=== PATIENT | female | born 1975 | race Caucasian/White ===

== ENCOUNTER → 2016-03-12 | Outpatient (CLI) | payer BC ==
[2016-03-12 09:15] VITALS: BP 120/73; PULSE 94; RESP 16; TEMP 98.3
[2016-03-12 09:44] VITALS: BMI 48.0
--- NOTE | 2016-03-12 10:04 | P.PN ---
Subjective Morbid obesity status post sleeve gastrectomy 40 years old female with morbid obesity BMI 53.6, height 5 feet 0.91nches presents for bariatric surgery follow up. Her comorbid conditions include benign essential hypertension, uncontrolled type 2 diabetes mellitus with prior diabetic ketoacidosis, hypothyroidism, asthma , liver cirrhosis and fibromyalgia. She is currently off insulin and takes metformin Preoperative visit #1, weight 128.3 KG, BMI 53.6 Preoperative visit #2, weight 128.3 KG, BMI 53.6 Preoperative visit #3, weight 127.23 KG, BMI 53 Surgery 01/30/16, weight 124.82 KG , BMI 52 Postoperative visit #1, weight 116.37KG, BMI 48.5 Postoperative visit #1, weight 115.34KG, BMI 48 Liver biopsy results discussed with the patient. She has cirrhosis without ascites or portal hypertension Review of Systems Constitutional: Denies fever, weight loss or loss of appetite HEENT: No difficulty in vision or hearing. Denies dysphagia. Cardiovascular: Denies chest pain, palpitations, dizziness, shortness of breath. Respiratory: Known sleep apnea but has not used CPAP machine due to ill fitting mask. Long-standing asthma well controlled with rescue inhalers. Gastrointestinal: No recent change in bowel habits, no abdominal pain, no nausea or vomiting. Occasional reflux symptoms Integumentary: No blood clots or rash Genitourinary: No urinary incontinence, hematuria or dysuria Neurologic: No seizures, denies weakness in upper or lower extremities. Chronic headaches and migraine Musculoskeletal: Knee Pain and back pain Psychiatry: Known history of depression, no suicidal ideation, no anxiety or psychosis Past Medical History Past Medical History: Asthma, Diabetes Mellitus, Fibromyalgia, GERD/Reflux, Hypertension, Pneumonia, Sleep Apnea/CPAP/BIPAP, Thyroid Disorder Additional Past Medical History / Comment(s): IP ADMISSION FOR PNEUMONIA. CPAP IS ORDERED BUT PATIENT IS NOT USING. Low back & knee pain. Migraines. Fibromyalgia History of Any Multi-Drug Resistant Organisms: None Reported Past Surgical History: Cholecystectomy Additional Past Surgical History / Comment(s): Carpal tunnel on left hand Past Anesthesia/Blood Transfusion Reactions: No Reported Reaction Additional Past Anesthesia/Blood Transfusion Reaction / Comment(s): "TAKES LONGER TO WAKE UP" Past Psychological History: Depression Additional Psychological History / Comment(s): takes cymbalta Smoking Status: Never smoker Past Alcohol Use History: None Reported Past Drug Use History: None Reported - Past Family History Mother Family Medical History: AFIB Father Family Medical History: Diabetes Mellitus, Hypertension, Pulmonary Embolus, Sleep Apnea/CPAP/BIPAP Additional Family Medical History / Comment(s): arthritis Objective - Vital Signs Vital signs: Vital Signs Temp 98.3 F 03/12/16 09:08 Pulse 94 03/12/16 09:08 Resp 16 03/12/16 09:08 BP 120/73 03/12/16 09:08 Pulse Ox Intake & Output 03/11/16 03/12/16 03/12/16 18:59 06:59 18:59 Weight 115.349 kg - Exam Gen.: Patient is alert and oriented to time place and person and cooperative with exam. No distress. Chest: Bilateral breath sounds present. Abdomen: Incisions clean dry and intact. No surgical site infection Integumentary: No rash - Labs CBC & Chem 7: 03/12/16 10:10 03/12/16 10:10 Assessment and Plan (1) Fibromyalgia Status: Acute (2) Hypertension Status: Acute (3) Hypothyroidism Status: Acute (4) Morbid obesity with BMI of 45.0-49.9, adult Status: Acute (5) Type 2 diabetes mellitus Status: Acute Plan: 1. Continue diet as per post bariatric surgery protocol 2. Start multivitamin daily. Increase physical activity . 3. Liver cirrhosis on operative finding and biopsy. Recommend GI consultation / Dr. Robbins for further workup 4. Follow-up in 3 months
[2016-03-12 10:49] LABS: CH 27.1; CHCM 31.8; HCT 40.4 % (34.0-46.0); HDW 2.51; HGB 12.8 gm/dL (11.4-16.0); MCH 27.2 pg (25.0-35.0); MCHC 31.8 g/dL (31.0-37.0); MCV 85.5 fL (80.0-100.0); Mean Platelet Volume 7.6; RBC 4.73 m/uL (3.80-5.40); RDW 14.8 % (11.5-15.5); WBC 5.3 k/uL (3.8-10.6)
[2016-03-12 11:26] LABS: ALT 43 U/L (9-52); AST 36 U/L (14-36); Alkaline Phosphatase 55 U/L (38-126); Anion Gap 13 mmol/L; Blood Urea Nitrogen 17 mg/dL (7-17); Calcium 9.9 mg/dL (8.4-10.2); Carbon Dioxide 25 mmol/L (22-30); Chloride 111 mmol/L (98-107); Glucose 116 mg/dL (74-99); Non-African American GFR(MDRD) >60 (>60 ml/min/1.73 sqM); Potassium 4.4 mmol/L (3.5-5.1); Sodium 149 mmol/L (137-145); Total Bilirubin 0.8 mg/dL (0.2-1.3); Total Protein 7.5 g/dL (6.3-8.2)
[2016-03-12 11:34] LABS: Prealbumin 25 mg/dL (18-36)
== END | disposition home or self-care (01) ==
LOC: BARWHC3 09:05
PROVIDERS: ATTEND Surgery
DX: Z48.815 Encounter for surgical aftercare following surgery on the digestive system (principal); Z71.3 Dietary counseling and surveillance; E66.01 Morbid (severe) obesity due to excess calories; Z68.42 Body mass index [BMI] 45.0-49.9, adult; M79.7 Fibromyalgia; I10 Essential (primary) hypertension; E03.9 Hypothyroidism, unspecified; E11.9 Type 2 diabetes mellitus without complications; K74.60 Unspecified cirrhosis of liver; G47.30 Sleep apnea, unspecified; Z99.89 Dependence on other enabling machines and devices; J45.909 Unspecified asthma, uncomplicated; Z87.01 Personal history of pneumonia (recurrent)
CPT/HCPCS: 80053; 82306; 84134; 84425; 84443; 84590; 85027; 99211

== ENCOUNTER → 2017-11-06 | Outpatient (CLI) | payer BC ==
[2017-11-06 09:03] VITALS: BP 140/97; PULSE 70; RESP 16
--- NOTE | 2017-11-06 09:33 | P.PAINCN ---
History of Present Illness - Reason for Consult Consult date: 11/06/17 - History of Present Illness This is the initial consultation visit for this 16 years old female with a chronic history of severe shoulder pain, upper back pain and low back pain and hip pain, started more than 2 years ago, she was diagnosed with fibromyalgia, and she is currently on combination medication Motrin 800 mg 3 times a day and Zanaflex 4 mg daily at bedtime, Lyrica 200 mg daily, Robaxin 100 mg 3 times a day when necessary, she denies any side effect of the medication she denies any excessive drowsiness or sleepiness, and she reported that the current medication helping to some degree but she continued to have severe shoulder pain , she is able to mobilize her shoulders bilaterally but the intensity of the pain increases with any shoulder movement, she denies any fever or night sweats she denies any change in the bowel movement or urination, she denies any motor or sensory deficit Past Medical History Past Medical History: Asthma, Diabetes Mellitus, Fibromyalgia, GERD/Reflux, Hypertension, Pneumonia, Respiratory Disorder, Sleep Apnea/CPAP/BIPAP, Thyroid Disorder Additional Past Medical History / Comment(s): PNEUMONIA. CPAP IS ORDERED BUT PATIENT IS NOT USING. Low back & knee pain. Migraines. Fibromyalgia History of Any Multi-Drug Resistant Organisms: None Reported Past Surgical History: Cholecystectomy Additional Past Surgical History / Comment(s): Carpal tunnel on left hand, 01-29 GASTRIC SLEEVE Past Anesthesia/Blood Transfusion Reactions: No Reported Reaction Additional Past Anesthesia/Blood Transfusion Reaction / Comm: "TAKES LONGER TO WAKE UP", CLAUSTERPHOBIA. Smoking Status: Never smoker - Past Family History Mother Family Medical History: AFIB Father Family Medical History: Diabetes Mellitus, Hypertension, Pulmonary Embolus, Sleep Apnea/CPAP/BIPAP Additional Family Medical History / Comment(s): arthritis Medications and Allergies Home Medications Medication Instructions Recorded Confirmed Type Albuterol Sulfate [Ventolin HFA] 2 puff INHALATION RT-Q6H PRN 02/13/14 11/06/17 History Methocarbamol [Robaxin] 1,000 mg PO TID PRN 07/18/15 11/06/17 History Pregabalin [Lyrica] 200 mg PO DAILY 07/18/15 11/06/17 History Levothyroxine Sodium [Synthroid] 100 mcg PO DAILY 01/30/16 11/06/17 History medroxyPROGESTERone [Depo-Provera] 150 mg IM Q84D 01/30/16 11/06/17 History Ibuprofen 800 mg PO TID PRN 11/06/17 11/06/17 History Sertraline HCl [Zoloft] 25 mg PO DAILY 11/06/17 11/06/17 History tiZANidine HCL [Zanaflex] 4 mg PO HS 11/06/17 11/06/17 History Allergies Allergy/AdvReac Type Severity Reaction Status Date / Time rizatriptan benzoate Allergy Severe ASTHMA Verified 11/06/17 08:36 [From Maxalt] EXACERBATION sumatriptan [From Imitrex] Allergy Severe ASTHMA Verified 11/06/17 08:36 EXACERABATION,PANICK ATACK sumatriptan succinate Allergy Severe ASTHMA Verified 11/06/17 08:36 [From Imitrex] EXACERBATION,PANIC ATTACKS zolmitriptan [From Zomig] Allergy Severe ASTHMA Verified 11/06/17 08:36 EXACERBATION Physical Exam Vitals: Vital Signs Pulse Resp BP Pulse Ox 11/06/17 08:57 70 16 140/97 97 Intake and Output 11/05/17 11/06/17 11/06/17 22:59 06:59 14:59 Other: Weight 117.934 kg Social history : not smoker , NO ETOH , NO Illegal drugs use . Review of Systems : 1- Constitutional : no chills , no fever , no night sweats , 2- Ears : no ear discharge , no change in hearing 3-Nose, Mouth ,Throat ; no bleeding gums, no sore throat , no epistaxis , 4-Cardiovascular : Denies chest pain, , no orthopnea , no palpitation 5-Respiratory : Denies cough , no dyspnea , no hemoptysis 6-Gastrointestinal :, no change in bowel habits , no coffee- ground emesis , morbidly obese. 7-Genitourinary : No hematuria , no discharge , no incontinence, 8-Musculoskeletal : No gait dysfunction , report upper low back pain , bilateral shoulder pain , reports right hip pain 9- Neurological : no ataxia , no tremor , no sezure , 10-Psychatric , no suicidal ideation no hallucination 11- Endocrine : no cold intolerence , no polyuria , no polydypsia , 12-Hematologic : no easy bleeding , no easy brusing , 13-Allergic / immunology : no angioedema , no wheezing ,no allergic rhinitis 14-Integumentary : no brttle nails , no change hair / nails , no foot/leg ulcers . Physical Examinations : 1-Constitutional : Cooperative , not in acute distress . 2-HEENT : nech ; supple , no Lymphadenopathy , no Thyromegaly , :eyes , no icterus, no photophobia . ENT : , normal oropharynx , no Thrush 3- Respiratory : Chest clear to auscultations Bilaterally , no wheezing . 4- Cardiovascular : regular rate and rhythem , S1 , S2 , no S3 , no S4. 5- Gastrointestinal: abdomen soft no tenderness , no organomegally . 6- Genitourinary : Defferred . 7-Integumentary : No cellulitis , no ulcers , normal skin turgor , no cyanotic . 8- neurologic : Cranial nerve II to XII intact , no focal neurological deffecit 9-psychatric : alert , oriented X 3 , appropriate affect , intact judgment and insight . 10-Lymphatic : no Lymphadenopathy. 11- musculoskeltal: normal gait Shoulder exam= tenderness over the deltoid muscles , supraspinatus muscle and infraspinatus muscles Shoulder joint range of motion, and pain with external rotation , and pain with abduction of both shoulders Cervical Spine motor stregnth in the deltoid and biceps, normal right side , normal Left side Lumber spine moter stegnth lower extremities ,thigh and legs 5/5 Right side , 5/5 Left side Assessment and Plan Plan: Assessment and plan=1-bilateral shoulder pain mostly secondary to muscular in nature. Examination supplanted the pain is not from the joint itself , it is from the muscles around the joint , patient could benefit from trigger point injection in the shoulder area(infraspinatus/ supraspinatus and deltoid ). 2-fibromyalgia= patient currently on appropriate medication regimen, I discussed with the patient the option of increasing the Lyrica 200 From once a day 100 mg twice a day, patient reported that her insurance did not approve it Time with Patient: Greater than 30 PQRS Measure Charge Sheet Measure #130: Documentation of Current Meds in Medical Chart: Patient's medications documented in chart Measure #226: Tobacco Use: Screen & Cessation Intervention: Pt not a tobacco user Measure #111: Pneumonia Vaccination: Pneumococcal vaccine NOT administered or previously given Measure #47: Advance Care Plan: Advance care planning discussed & documented, pt chose/unable to give Measure #412: Opioid Treatment Agreement: No documentation of signed opioid treatment agreement Measure #408: Opioid Therapy Follow-up Evaluation: Patient had NO f/u eval minimum every 3 months during opioid therapy Measure #317: Preventitive Care & Scrn High Bld Press & F/U: Pre-hypertensive or hypertensive BP documented, pt will f/u with PCP Measure #128: Body Mass Index (BMI) Screening & Follow-up: BMI documented ABOVE normal parameters - f/u documented Measure #131: Pain Assessment & Follow-up: Pain positive & plan documented, Follow-up scheduled Measure #431: Unhealthy Alcohol Use Preventative Care & Scrn: Patient not identified as an unhealthy alcohol user PQRS Narrative: Smoking Status Never smoker Do You Want the Pneumonia No Vaccine AT THIS TIME? Blood Pressure 140/97 Pain Intensity [Bilateral 3 Shoulder] Scale Used Numeric (1 - 10) Hx Alcohol Use (MH) No Home Medications: Ambulatory Orders Albuterol Sulfate [Ventolin HFA] 2 puff INHALATION RT-Q6H PRN 02/13/14 Methocarbamol [Robaxin] 1,000 mg PO TID PRN 07/18/15 Pregabalin [Lyrica] 200 mg PO DAILY 07/18/15 Levothyroxine Sodium [Synthroid] 100 mcg PO DAILY 01/30/16 medroxyPROGESTERone [Depo-Provera] 150 mg IM Q84D 01/30/16 Ibuprofen 800 mg PO TID PRN 11/06/17 Sertraline HCl [Zoloft] 25 mg PO DAILY 11/06/17 tiZANidine HCL [Zanaflex] 4 mg PO HS 11/06/17
== END | disposition home or self-care (01) ==
LOC: PNWHC3 08:32
PROVIDERS: ATTEND Specialist
DX: G89.29 Other chronic pain (principal); M25.512 Pain in left shoulder; M25.511 Pain in right shoulder; M54.5 Low back pain; M79.7 Fibromyalgia; J45.909 Unspecified asthma, uncomplicated; E07.9 Disorder of thyroid, unspecified; Z79.1 Long term (current) use of non-steroidal anti-inflammatories (NSAID); Z79.899 Other long term (current) drug therapy; Z79.3 Long term (current) use of hormonal contraceptives; Z88.8 Allergy status to other drugs, medicaments and biological substances; Z90.49 Acquired absence of other specified parts of digestive tract
CPT/HCPCS: 99211

== ENCOUNTER 2017-11-23 06:55 | Day surgery (SDC) | payer BC ==
[2017-11-17 10:06] VITALS: BMI 47.2
[~2017-11-23 06:55] MED LIST: LACTATED RINGERS 1,000 ML IV SCH
[2017-11-23 07:26] VITALS: RESP 18; TEMP 98.6
--- NOTE | 2017-11-23 08:16 | P.PCN ---
Date of Procedure: 11/23/17 Anesthesia: local Pathology: none sent Condition: stable Disposition: PACU Description of Procedure: The patient was seen in the preop holding area consent was obtained then she was brought into the procedure room and placed in prone position. The trigger points were marked at the skin level and skin and then was prepped with DuraPrep and draped in a sterile manner. I then used 25-gauge 1-1/2 inch needle to go through the skin and into the trapezius and rhomboid muscles bilaterally and the left deltoid muscle. A solution of 40 mg of Kenalog +8 MLS of ropivacaine 0.5% was prepared and 1 mL of the solution was injected at each target point was a total of 9 points were injected. Patient tolerated procedure well.
[2017-11-23 08:26] VITALS: BP 130/89; PULSE 70
== END 2017-11-23 08:42 | disposition home or self-care (01) ==
LOC: ORPAIN 06:55
PROVIDERS: ATTEND Anesthesiology
DX: G89.29 Other chronic pain (principal); M79.18 Myalgia, other site; M79.7 Fibromyalgia; Z79.1 Long term (current) use of non-steroidal anti-inflammatories (NSAID); Z79.899 Other long term (current) drug therapy; J45.909 Unspecified asthma, uncomplicated; E11.9 Type 2 diabetes mellitus without complications; K21.9 Gastro-esophageal reflux disease without esophagitis; I10 Essential (primary) hypertension; G47.30 Sleep apnea, unspecified; E07.9 Disorder of thyroid, unspecified; Z79.890 Hormone replacement therapy; Z88.8 Allergy status to other drugs, medicaments and biological substances
CPT/HCPCS: 81025; 20553; J3301

== ENCOUNTER → 2017-12-14 | Outpatient (CLI) | payer BC ==
--- NOTE | 2017-12-14 12:37 | P.PAINPG ---
Subjective Progress Note Date: 12/14/17 This is a follow-up visit for this 42 years old female, with a history of severe neck and left shoulder, diagnosed with fibromyalgia, and myofascial pain syndrome with done trigger point injection, shoulders and cervical area, she continued to have severe neck pain and shoulder pain, she is currently on Robaxin , Zanaflex daily at bedtime, Motrin 800 mg 3 times a day, Lyrica 200 mg daily at bedtime, she denies any side effect of the medication she denies any excessive drowsiness and sleepiness, and she reports the current medication is not helping enough to control her pain, she denies any motor or sensory deficit she denies any fever or night sweats, and no change in bowel movement or urination Physical Examinations : 1-Constitutional : Cooperative , not in acute distress . 2-HEENT : nech ; supple , no Lymphadenopathy , no Thyromegaly , :eyes , no icterus, no photophobia . ENT : , normal oropharynx , no Thrush 3- Respiratory : Chest clear to auscultations Bilaterally , no wheezing . 4- Cardiovascular : regular rate and rhythem , S1 , S2 , no S3 , no S4. 5- Gastrointestinal: abdomen soft no tenderness , no organomegally . 6- Genitourinary : Defferred . 7-Integumentary : No cellulitis , no ulcers , normal skin turgor , no cyanotic . 8- neurologic : Cranial nerve II to XII intact , no focal neurological deffecit 9-psychatric : alert , oriented X 3 , appropriate affect , intact judgment and insight . 10-Lymphatic : no Lymphadenopathy. 11- musculoskeltal: normal gait Shoulder exam= tenderness over the deltoid muscles , supraspinatus muscle and infraspinatus muscles Shoulder joint range full range of motion, minimal pain with external rotation, pain with abduction of both shoulders Cervical Spine motor stregnth in the deltoid and biceps, normal right side , normal Left side Lumber spine moter stegnth lower extremities ,thigh and legs 5/5 Right side , 5/5 Left side Assessment and Plan Plan: Assessment and plan=1-bilateral shoulder pain mostly secondary to muscular in nature. Examination supplanted the pain is not from the joint itself , it is from the muscles around the joint , patient could benefit from trigger point injection in the shoulder area(infraspinatus/ supraspinatus and deltoid ). 2-fibromyalgia= patient currently on appropriate medication regimen, I discussed with the patient the option of increasing the Lyrica 200 From once a day 100 mg twice a day, patient reported that her insurance did not approve it Patient could benefit from physical therapy/ massage therapy , prescription given. Patient could benefit from repeat trigger point injection, prescription refill for Lyrica 200 mg daily at bedtime dispense 30 with 5 refills given Objective - Vital Signs Vital signs: Vital Signs Temp Pulse 87 12/14/17 12:11 Resp 16 12/14/17 12:11 BP 132/83 12/14/17 12:11 Pulse Ox 97 12/14/17 12:11 Intake & Output 12/13/17 12/14/17 12/14/17 18:59 06:59 18:59 Weight 117.934 kg PQRS Measure Charge Sheet Measure #130: Documentation of Current Meds in Medical Chart: Patient's medications documented in chart Measure #226: Tobacco Use: Screen & Cessation Intervention: Pt not a tobacco user Measure #111: Pneumonia Vaccination: Pneumococcal vaccine NOT administered or previously given Measure #47: Advance Care Plan: Advance care planning discussed & documented, pt chose/unable to give Measure #412: Opioid Treatment Agreement: No documentation of signed opioid treatment agreement Measure #408: Opioid Therapy Follow-up Evaluation: Patient had NO f/u eval minimum every 3 months during opioid therapy Measure #317: Preventitive Care & Scrn High Bld Press & F/U: Normal blood pressure, f/u not required Measure #128: Body Mass Index (BMI) Screening & Follow-up: BMI documented ABOVE normal parameters - f/u documented Measure #131: Pain Assessment & Follow-up: Pain positive & plan documented, Follow-up scheduled Measure #431: Unhealthy Alcohol Use Preventative Care & Scrn: Patient not identified as an unhealthy alcohol user PQRS Narrative: Smoking Status Never smoker Do You Want the Pneumonia No Vaccine AT THIS TIME? Blood Pressure 132/83 Pain Intensity [Posterior Head 6 ] Scale Used Numeric (1 - 10) Hx Alcohol Use (MH) No Home Medications: Ambulatory Orders Albuterol Sulfate [Ventolin HFA] 2 puff INHALATION RT-Q6H PRN 02/13/14 Methocarbamol [Robaxin] 1,000 mg PO TID PRN 06/01/16 Pregabalin [Lyrica] 200 mg PO HS 07/18/15 medroxyPROGESTERone [Depo-Provera] 150 mg IM Q84D 01/30/16 Ibuprofen 800 mg PO TID PRN 11/06/17 Sertraline HCl [Zoloft] 25 mg PO HS 11/06/17 tiZANidine HCL [Zanaflex] 4 mg PO HS 11/06/17 Controlled Substance Measures - Controlled Substance Measures Is patient prescribed a controlled substance at discharge?: No When asked, does pt state using other controlled substances?: No If prescribed controlled substance>3 days was MAPS reviewed?: No If Rx opioid, was Start Talking consent form obtained?: No If opioid is for acute pain is fill amount 7 days or less?: No Was information provided regarding opioid addiction?: No
[2017-12-14 12:48] VITALS: BP 132/83; PULSE 87; RESP 16
== END | disposition home or self-care (01) ==
LOC: PNWHC3 11:57
PROVIDERS: ATTEND Specialist
DX: M25.511 Pain in right shoulder (principal); M25.512 Pain in left shoulder; M79.7 Fibromyalgia; Z79.899 Other long term (current) drug therapy; Z79.1 Long term (current) use of non-steroidal anti-inflammatories (NSAID)
CPT/HCPCS: 99211